=== PATIENT | male | born 1975 | race Caucasian/White ===

== ENCOUNTER → 2017-12-02 | Outpatient (CLI) | payer BC ==
--- NOTE | 2017-12-02 13:46 | DIREP ---
PROCEDURE:XR SPINE CERVICAL COMP W/ OBLIQUES COMPARISON:None. INDICATIONS:NECK PAIN M54.2 TECHNIQUE:Frontal, lateral, swimmer's, bilateral oblique, and open-mouth views. FINDINGS: ALIGNMENT:There is straightening of the cervical lordosis that may be positional or related to spasm. VERTEBRAE:Normal. DISK SPACES:C5-6 ventral spondylosis without significant disc space narrowing. CERVICAL RIBS:None. OTHER:No evidence for osseous neural foraminal narrowing. CONCLUSION: 1. Mild C5-6 degenerative disc disease. 2. Straightening of the cervical lordosis that may be positional or related to spasm. Dictated by: Luis F Mckeon MD on 12/02/2017 at 01:48 PM
== END | disposition home or self-care (01) ==
LOC: RAD 11:57
PROVIDERS: ATTEND Internal Medicine
DX: M50.322 Other cervical disc degeneration at C5-C6 level (principal); M40.292 Other kyphosis, cervical region
CPT/HCPCS: 72050

== ENCOUNTER → 2021-09-25 | Outpatient (CLI) | payer BC ==
--- NOTE | 2021-09-25 10:40 | DIREP ---
PROCEDURE:XRAY HIP MIN 2VW-LT COMPARISON:None. INDICATIONS:M25.552 PAIN IN LEFT HIP FINDINGS: BONES:Small marginal acetabular osteophyte with small os acetabuli. Aspherocity of the bilateral femoral heads. No visible fracture. JOINTS:Left hip joint maintained. SOFT TISSUES:Normal. OTHER:No additional findings. CONCLUSION: 1. Mild left hip degenerative changes. 2. 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 3. No acute osseous or joint space abnormality. Dictated by: Anthony Hassan M.D. on 09/25/2021 at 10:33 AM
== END | disposition home or self-care (01) ==
LOC: RAD 09:46
PROVIDERS: ATTEND Nurse Practitioner Family
DX: M16.12 Unilateral primary osteoarthritis, left hip (principal)
CPT/HCPCS: 73502